=== PATIENT | female | born 1995 | race Caucasian/White ===

== ENCOUNTER 2016-11-29 17:59 | Emergency (ER) | payer BC ==
[2016-11-29 19:23] LABS: HEMOGLOBIN 14.8 gm/dl (12.3-15.3); RED BLOOD COUNT 4.63 M/UL (4.00-5.10); WHITE BLOOD COUNT 6.8 K/UL (4.5-11.0)
[2016-11-29 19:39] LABS: BUN/CREATININE RATIO 6 (0-10)
== END 2016-11-29 23:05 | disposition home or self-care (01) ==
LOC: ER1 17:59
PROVIDERS: Physician Assistant Medical
DX: N83.202 Unspecified ovarian cyst, left side (principal); R19.7 Diarrhea, unspecified
CPT/HCPCS: 36415; 76830; 80053; 81001; 82150; 83690; 84703; 85025; 96361; 96374; 99284; J2405; J7030; J7050; Q9962

== ENCOUNTER 2020-08-31 20:47 | Outpatient (CLI) | payer OTHER ==
[~2020-08-31 20:47] MED LIST: DDAVP0.2 MG PO; DICLEGIS DR 101 EACH PO; FEOSOL325 MG PO; FLINTSTONES COM18 MG PO; NIGHTTIME SLEEP25 M1 PO; PHENERGAN 12.12.5 M1 PO; SYNTHROID88 MCG PO
== END 2020-08-31 22:29 | disposition home or self-care (01) ==
LOC: GENOP 20:47
PROVIDERS: Obstetrics & Gynecology
DX: O62.9 Abnormality of forces of labor, unspecified (principal); Z3A.37 37 weeks gestation of pregnancy
CPT/HCPCS: 59025; 80307; 81001

== ENCOUNTER 2020-09-12 11:59 | Inpatient (IN) | payer OTHER ==
[~2020-09-12] VITALS: Ht 157.5 cm; Wt 61.7 kg
[2020-09-12 13:53] LABS: HEMOGLOBIN 12.2 gm/dl (12.3-15.3); RED BLOOD COUNT 4.07 M/UL (4.00-5.10); WHITE BLOOD COUNT 8.2 K/UL (4.5-11.0)
[2020-09-12] MEDS ORDERED: HYDROCODON-ACE1 EAC4 PO (15:49)
[2020-09-12] MEDS ORDERED: FERREX 150 FOR1 EACH PO (15:49)
[2020-09-12] MEDS ORDERED: IBUPROFEN600 MG PO (15:49)
[2020-09-12] MEDS ORDERED: COLACE100 MG PO (15:49)
[2020-09-13 06:13] LABS: HEMOGLOBIN 9.6 gm/dl (12.3-15.3)
[2020-09-13 19:36] LABS: BUN/CREATININE RATIO 14 (0-10)
== END 2020-09-14 15:57 | disposition home or self-care (01) | DRG 788 ==
LOC: GENOP 11:59 → OB 13:33
PROVIDERS: Obstetrics & Gynecology; ADMIT Obstetrics & Gynecology
PROC: 10D00Z1 Extraction of Products of Conception, Low, Open Approach (ICD-10-PCS; principal; 2020-09-12 14:40)
DX: O34.211 Maternal care for low transverse scar from previous cesarean delivery (principal); N85.8 Other specified noninflammatory disorders of uterus; O99.891 Other specified diseases and conditions complicating pregnancy; O99.343 Other mental disorders complicating pregnancy, third trimester; F41.8 Other specified anxiety disorders; M54.5 Low back pain; Z3A.38 38 weeks gestation of pregnancy; Z37.0 Single live birth; Z82.49 Family history of ischemic heart disease and other diseases of the circulatory system; Z80.9 Family history of malignant neoplasm, unspecified; Z20.822 Contact with and (suspected) exposure to COVID-19
CPT/HCPCS: 36415; 80048; 81001; 85014; 85018; 85025; 90715; C9113; J0690; J1200; J1885; J2250; J2274; J2300; J2405; J2590; J2795; J3010; J7120; U0002

== ENCOUNTER → 2020-12-10 | Outpatient (CLI) | payer OTHER ==
[~2020-12-10] MED LIST changes: +COLACE100 MG PO; +FERREX 150 FOR1 EACH PO; +HYDROCODON-ACE1 EAC4 PO; +IBUPROFEN600 MG PO
[2020-12-10 14:16] LABS: HEMOGLOBIN 13.6 gm/dl (12.3-15.3); RED BLOOD COUNT 4.68 M/UL (4.00-5.10); WHITE BLOOD COUNT 5.8 K/UL (4.5-11.0)
[2020-12-10 15:07] LABS: BUN/CREATININE RATIO 9 (0-10)
== END ==
LOC: LAB 12:08
PROVIDERS: Nurse Practitioner Family
DX: F98.0 Enuresis not due to a substance or known physiological condition (principal); E03.9 Hypothyroidism, unspecified
CPT/HCPCS: 36415; 80048; 80061; 84439; 84443; 84481; 85025